=== PATIENT | female | born 1960 | race African-American/Black ===

== ENCOUNTER 2018-11-08 15:33 | Emergency (ER) | payer SELFPAY ==
[~2018-11-08] VITALS: Ht 162.6 cm; Wt 79.5 kg
[2018-11-08 15:36] VITALS: BP 181/87; TEMP 98.7
[2018-11-08] MEDS ORDERED: GLUCOPHAGE XR750 MG PO (15:45)
[2018-11-08] MEDS ORDERED: STEGLATRO5 MG PO (15:46)
[2018-11-08] MEDS ORDERED: ANTIVERT 25MG25 MG PO (15:46)
[2018-11-08] MEDS ORDERED: VITAMIN D32000 I1 PO (15:46)
[2018-11-08] MEDS ORDERED: ASPIRIN 81M81 MG/TA2 PO (15:46)
[2018-11-08] MEDS ORDERED: LIPITOR20 MG PO (15:47)
[2018-11-08] MEDS ORDERED: EPITOL PO (15:47)
[2018-11-08] MEDS ORDERED: ZESTRIL 20MG TA20 MG PO (15:48)
[2018-11-08] MEDS ORDERED: TYLENOL 8 HR PO (15:48)
[2018-11-08] MEDS ORDERED: TOUJEO300 U/ML SQ (15:49)
[2018-11-08] MEDS ORDERED: NEURONTIN300 MG/CAP PO ×2 (15:49→16:19)
[2018-11-08] MEDS ORDERED: NORCO 325 MG-51 TAB PO (16:18)
[2018-11-08] MEDS ORDERED: TEGRETOL 2200 MG/TA1 PO (16:19)
[2018-11-08 16:43] VITALS: PULSE 82
== END 2018-11-08 16:45 | disposition home or self-care (01) ==
LOC: COL.ER 15:33
DX: G50.0 Trigeminal neuralgia (principal); I10 Essential (primary) hypertension; E11.9 Type 2 diabetes mellitus without complications; E78.5 Hyperlipidemia, unspecified; Z79.82 Long term (current) use of aspirin; Z79.4 Long term (current) use of insulin

== ENCOUNTER 2018-11-19 14:37 | Emergency (ER) | payer SELFPAY ==
[~2018-11-19] VITALS: Ht 162.6 cm; Wt 81.8 kg
[~2018-11-19 14:37] MED LIST: ANTIVERT 25MG25 MG PO; ASPIRIN 81M81 MG/TA2 PO; EPITOL PO; GLUCOPHAGE XR750 MG PO; LIPITOR20 MG PO; NEURONTIN300 MG/CAP PO; NORCO 325 MG-51 TAB PO; STEGLATRO5 MG PO; TEGRETOL 2200 MG/TA1 PO; TOUJEO300 U/ML SQ; TYLENOL 8 HR PO; VITAMIN D32000 I1 PO; ZESTRIL 20MG TA20 MG PO
[2018-11-19 14:50] VITALS: BP 176/82; TEMP 98
[2018-11-19 17:31] VITALS: PULSE 81
== END 2018-11-19 17:32 | disposition home or self-care (01) ==
LOC: COL.ER 14:37
DX: G50.0 Trigeminal neuralgia (principal); E11.9 Type 2 diabetes mellitus without complications

== ENCOUNTER → 2018-12-18 | Outpatient (CLI) | payer SELFPAY | LOC: COL.RAD 11:42 | DX: M79.89 Other specified soft tissue disorders (principal); L84 Corns and callosities; E11.69 Type 2 diabetes mellitus with other specified complication; Z89.422 Acquired absence of other left toe(s) ==

== ENCOUNTER → 2018-12-31 | Outpatient (CLI) | payer SELFPAY | LOC: COL.RAD 11:30 | DX: G50.0 Trigeminal neuralgia (principal) ==

== ENCOUNTER 2019-01-05 16:02 | Emergency (ER) | payer OTHER ==
[2019-01-05 16:14] VITALS: BP 187/84; TEMP 97.6
[2019-01-05] MEDS ORDERED: NORCO 325 MG-51 TAB PO (19:10)
[2019-01-05] MEDS ORDERED: NAPROSYN 2250 MG/TAB PO (19:10)
[2019-01-05] MEDS ORDERED: TEGRETOL 1100 MG/TAB PO (19:10)
[2019-01-05 19:45] VITALS: PULSE 84
== END 2019-01-05 19:46 | disposition home or self-care (01) ==
LOC: COL.ER 16:02
DX: G50.0 Trigeminal neuralgia (principal)
CPT/HCPCS: J1170; J1885

== ENCOUNTER 2019-01-16 14:05 | Emergency (ER) | payer OTHER ==
[~2019-01-16] VITALS: Ht 162.6 cm; Wt 80.8 kg
[~2019-01-16 14:05] MED LIST changes: +NAPROSYN 2250 MG/TAB PO; +TEGRETOL 1100 MG/TAB PO
[2019-01-16 14:23] VITALS: BP 199/91; TEMP 78.8
[2019-01-16] MEDS ORDERED: NORCO 325 MG-51 TAB PO (16:24)
[2019-01-16] MEDS ORDERED: TEGRETOL 2200 MG/TA1 PO (16:24)
[2019-01-16 16:35] VITALS: PULSE 78
== END 2019-01-16 16:36 | disposition home or self-care (01) ==
LOC: COL.ER 14:05
DX: G50.0 Trigeminal neuralgia (principal); E11.9 Type 2 diabetes mellitus without complications; Z79.84 Long term (current) use of oral hypoglycemic drugs

== ENCOUNTER 2019-01-20 16:55 | Emergency (ER) | payer OTHER ==
[~2019-01-20] VITALS: Ht 162.6 cm; Wt 80.9 kg
[2019-01-20 17:05] VITALS: TEMP 98.6
[2019-01-20] MEDS ORDERED: NORCO 325 MG-51 TAB PO (19:08)
[2019-01-20 19:26] VITALS: BP 164/63; PULSE 79
== END 2019-01-20 19:28 | disposition home or self-care (01) ==
LOC: COL.ER 16:55
DX: G50.0 Trigeminal neuralgia (principal); E11.621 Type 2 diabetes mellitus with foot ulcer

== ENCOUNTER 2019-03-28 11:56 | Emergency (ER) | payer OTHER ==
[~2019-03-28] VITALS: Ht 162.6 cm; Wt 79.5 kg
[2019-03-28 12:01] VITALS: TEMP 98.3
[2019-03-28 12:47] LABS: BASO % 0.1 % (0.0-2.0); EOS # 0.3 (0.0-0.7); EOS % 2.9 % (0-4.0); GRAN # 6.8 (1.4-6.5); GRAN % 72.4 % (42.2-75.2); LYMPH # 1.8 (1.2-3.4); LYMPH % 19.6 % (20.0-51.0); MEAN CELL VOLUME 84 fl (80.0-100.0); MEAN CORPUSCULAR HEMOGLOBIN 27 pg (27.0-31.0); MEAN CORPUSCULAR HGB CONC 32 g/dl (33.0-37.0); MEAN PLATELET VOLUME 9.7 fl (7.4-10.4); MONO # 0.4 (0.1-0.6); MONO % 4.6 % (1.7-9.3); PLATELET COUNT 301 K/mm3 (130-400); RED BLOOD COUNT 3.74 M/mm3 (4.10-5.30); REDCELL DISTRIBUTION WIDTH-CV 14.7 % (11.5-14.5)
[2019-03-28 12:48] LABS: HEMATOCRIT 31.3 % (37.0-47.0)
[2019-03-28 13:03] LABS: ALBUMIN 4.2 gm/dL (3.5-5.0); BILIRUBIN,TOTAL 0.2 mg/dL (0.0-1.0); CALCIUM 9.8 mg/dL (8.4-10.2); CREATININE, serum 0.82 (0.52-1.25); POTASSIUM 4.5 mmol/L (3.4-5.0); TOTAL PROTEIN 7.9 gm/dL (6.4-8.2)
[2019-03-28 13:16] LABS: ERYTHROCYTE SEDIMENTATION RATE 105 mm/hr (0-30)
[2019-03-28 13:30] LABS: C-REACTIVE PROTEIN 16.9 mg/dL (0.0-0.9)
[2019-03-28] MEDS ORDERED: CLEOCIN HCL300 MG PO (14:23)
[2019-03-28 16:43] VITALS: BP 133/73; PULSE 84
== END 2019-03-28 16:45 | disposition home or self-care (01) ==
LOC: COL.ER 11:56
PROVIDERS: Emergency Medicine
DX: M86.9 Osteomyelitis, unspecified (principal); L08.9 Local infection of the skin and subcutaneous tissue, unspecified
CPT/HCPCS: J0696; J3370; J7040

== ENCOUNTER → 2019-03-29 | Outpatient (CLI) | payer OTHER ==
[~2019-03-29] MED LIST changes: +CLEOCIN HCL300 MG PO; +CYMBALTA 30MG30 MG PO; +JENTADUETO PO; +LOTREL 5/20 CAP1 CAP PO; +LYRICA 100MG C100 M1 PO; +MASON NATURAL2000 IU PO
== END ==
LOC: ZCOL.LAB 11:15
DX: Z01.812 Encounter for preprocedural laboratory examination (principal); Z86.14 Personal history of Methicillin resistant Staphylococcus aureus infection

== ENCOUNTER 2019-03-31 15:00 | Inpatient (IN) | payer OTHER ==
[~2019-03-31] VITALS: Ht 162.6 cm; Wt 93.3 kg
[~2019-03-31 15:00] MED LIST changes: -CYMBALTA 30MG30 MG PO; -JENTADUETO PO; -LOTREL 5/20 CAP1 CAP PO; -LYRICA 100MG C100 M1 PO; -MASON NATURAL2000 IU PO
[2019-03-31] MEDS ORDERED: LIPITOR20 MG PO (15:21)
[2019-03-31] MEDS ORDERED: CYMBALTA 30MG30 MG PO (15:22)
[2019-03-31] MEDS ORDERED: MASON NATURAL2000 IU PO (15:22)
[2019-03-31] MEDS ORDERED: JENTADUETO PO (15:23)
[2019-03-31] MEDS ORDERED: ASPIRIN 81M81 MG/TA2 PO (15:24)
[2019-03-31] MEDS ORDERED: EPITOL PO (15:24)
[2019-03-31 15:46] LABS: BASO % 0.2 % (0.0-2.0); EOS # 0.4 (0.0-0.7); EOS % 3.9 % (0-4.0); GRAN # 6.1 (1.4-6.5); GRAN % 65.3 % (42.2-75.2); HEMOGLOBIN 10.4 g/dl (12.5-16.0); LYMPH # 2.2 (1.2-3.4); LYMPH % 23.6 % (20.0-51.0); MEAN CELL VOLUME 84 fl (80.0-100.0); MEAN CORPUSCULAR HEMOGLOBIN 27 pg (27.0-31.0); MEAN CORPUSCULAR HGB CONC 32 g/dl (33.0-37.0); MEAN PLATELET VOLUME 9.5 fl (7.4-10.4); MONO # 0.6 (0.1-0.6); MONO % 6.7 % (1.7-9.3); PLATELET COUNT 349 K/mm3 (130-400); REDCELL DISTRIBUTION WIDTH-CV 14.6 % (11.5-14.5)
[2019-03-31 15:47] LABS: HEMATOCRIT 32.7 % (37.0-47.0)
[2019-03-31 15:58] LABS: ALBUMIN 4.2 gm/dL (3.5-5.0); BILIRUBIN,TOTAL 0.2 mg/dL (0.0-1.0); CALCIUM 10.2 mg/dL (8.4-10.2); CREATININE, serum 0.68 (0.52-1.25); POTASSIUM 4.6 mmol/L (3.4-5.0)
[2019-03-31 16:18] LABS: C-REACTIVE PROTEIN 19.1 mg/dL (0.0-0.9)
[2019-03-31] MEDS ORDERED: LYRICA 100MG C100 M1 PO (16:23)
[2019-03-31] MEDS ORDERED: LOTREL 5/20 CAP1 CAP PO (16:24)
--- NOTE | 2019-03-31 18:00 | NUR ---
PATIENT SETTELED INTO ROOM. DAUGHTER PRESENT AT THE BEDSIDE. IV FLUIDS AND ZOSYN INFUSING TO LEFT AC IV VIA PUMP. CALL LIGHT WITHIN REACH. DINNER TRAY ORDERED. PATIENT DENIES ANY NEEDS AT THIS TIME.
[2019-03-31 18:09] VITALS: BP 143/64; PULSE 87; TEMP 97.9
--- NOTE | 2019-03-31 19:02 | NUR ---
REPORT GIVEN TO SUSAN HINOJOSA.
--- NOTE | 2019-03-31 19:11 | NUR ---
Report received from SUSAN Mckeon. Patient finished up supper and tray removed. Daughter at bedside. IV to LAC continues to occlude. Coban applied and this appears to be helping. Will continue to monitor.
[2019-03-31 19:23] VITALS: BP 147/67; PULSE 92; TEMP 98.3
[2019-03-31 23:40] VITALS: BP 124/46; PULSE 77; TEMP 98.3
--- NOTE | 2019-04-01 04:08 | NUR ---
Wound culture obtained around 2300. Site to left 2nd toe rewrapped with gauze. Patient complains of pain but refuses pain medication. Bilateral edema noted with +2 on the left foot. Patient states she has not been able to rest well tonight. Will continue to monitor.
[2019-04-01 04:43] VITALS: BP 123/49; PULSE 80; TEMP 98.1
[2019-04-01 08:02] VITALS: BP 128/48; PULSE 78; TEMP 98.1
--- NOTE | 2019-04-01 10:21 | NUR ---
SW attended rounds with the team. Ortho was consulted. After rounds SW met with the patient and patient's daughter, Maribel to discuss a discharge plan. The patient lives in [place] with her daughter. The patient has a cane and reports independence with ADLs. The patient inquired about getting a walker. The patient is self-pay. AUGUSTIN contacted Neil from [facility] to inquire about a walker. Lilia reports [facility] has a walker available. SW to informed patient. The patient's PCP is Kendy Lewis APRN and patient receives medications from [facility] and at times has difficulties paying. Patient will need medication voucher upon discharge if any medications are prescribed. The patient does not have advanced directives in the EMR but was interested in obtaining a DPOA-HC. AUGUSTIN provided the form. The patient plans to return home upon discharge with Maribel providing transportation. medical and health services manager will continue to follow to ensure a safe discharge.
--- NOTE | 2019-04-01 11:00 | NUR ---
Patient is doing well this am. Minimal complaints of pain to left foot. Is having some pain from trigeminal neuralgia. Gauze dressing to left foot. Wound care notified this am of consult. Patient has been up to the bathroom but otherwise is staying in bed with foot elevated. No other changes at this time. Call light within reach.
[2019-04-01 11:06] VITALS: BP 137/46; PULSE 78; TEMP 97.6
[2019-04-01 15:20] VITALS: BP 111/48; BP 124/109; PULSE 79; TEMP 98
--- NOTE | 2019-04-01 18:30 | NUR ---
Patient is in the shower at this time. She wanted to shower before her next dose of antibiotics. Continues to deny pain. Family has been at bedside all day. No other changes at this time. Call light within reach.
--- NOTE | 2019-04-01 19:24 | NUR ---
Report received from SUSAN Camargo. Dressing to left toe changed. Yellow, pus-like drainage noted on old bandage. Patient denies any further needs at this time.
[2019-04-01 19:29] VITALS: BP 119/61; PULSE 83; TEMP 98.2
[2019-04-01 23:51] VITALS: BP 124/57; PULSE 84; TEMP 97.7
[2019-04-02] VITALS (13 sets, daily range): BP systolic 109–141; BP diastolic 39–72; PULSE 65–80; TEMP 97.7–98.7
--- NOTE | 2019-04-02 06:06 | NUR ---
Patient has rested well throughout the night. Denies pain. NPO at midnight. Patient denies any needs. Up to the bathroom independently, but calls for staff to empty hat in toilet. Will report off to day shift nurse.
--- NOTE | 2019-04-02 06:53 | NUR ---
awake and up in room independently, bedside shift report received from SUSAN Dolan
--- NOTE | 2019-04-02 07:15 | NUR ---
watching TV, full assessment completed, see interventions for further info, ready for surgery, blood sugar 202, spoke with Ritchie Vicente CRNA and will hold insulin,
--- NOTE | 2019-04-02 08:00 | NUR ---
to surgery per bed, attempted to call JOSE MARTIN Jansen and no answer
--- NOTE | 2019-04-02 09:50 | NUR ---
returned to room from surgery per bed, awake and alert but sleepy, IV infusing per gravity, has bulky sana wrap dressing to left foot that is CD&I, denies needs at this time
--- NOTE | 2019-04-02 10:15 | NUR ---
repositioned for comfort, states has having some "chest pressure' and wants to try being repositioned, denies shortness of breath
--- NOTE | 2019-04-02 10:45 | NUR ---
is a little more awake and am meds given, assisted up to bathroom and voided qs
--- NOTE | 2019-04-02 11:00 | NUR ---
states the "chest pressure" is more like a knot in her chest, rests quietly
--- NOTE | 2019-04-02 11:10 | NUR ---
Svetlana PEREZ notified of patient's c/o 'chest pressure/knot in her chest"
--- NOTE | 2019-04-02 12:30 | NUR ---
awake and watching TV, has ordered something to eat
--- NOTE | 2019-04-02 15:41 | NUR ---
ambulated in [place] with physical therapy, Vancomycin started and IV is leaking, discontinued
--- NOTE | 2019-04-02 16:00 | NUR ---
attempted times to to start IV without success, vehicle maintenance supervisor notified
--- NOTE | 2019-04-02 17:30 | NUR ---
sitting up in bed eating supper
--- NOTE | 2019-04-02 19:00 | NUR ---
bedside shift report given to SUSAN Galeana
--- NOTE | 2019-04-02 20:10 | NUR ---
Pt resting in bed. No distress noted. Pt denies pain. Dressing to L foot-second toe amputation clean dry and intact. Pedal pulses equal. CMS intact. Respirations even and unlabored. Lungs clear. Abdomen soft, nontender. BS+. IV Abx infusing to RH INT. Pt denies needs at this time. Will continue to monitor.
[2019-04-03] VITALS (7 sets, daily range): BP systolic 96–139; BP diastolic 45–77; PULSE 71–79; TEMP 97.3–98.9
--- NOTE | 2019-04-03 06:17 | NUR ---
Pt resting this AM. No distress noted. Pt has had no complaints of pain throughout the night. Ambulating to the bathroom and back to bed without difficulty. IV Abx infusing to RH INT. VSS.
[2019-04-03 07:16] LABS: BASO % 0.3 % (0.0-2.0); EOS # 0.3 (0.0-0.7); EOS % 4.1 % (0-4.0); GRAN # 4.2 (1.4-6.5); GRAN % 58.1 % (42.2-75.2); LYMPH # 2.2 (1.2-3.4); LYMPH % 29.9 % (20.0-51.0); MEAN CELL VOLUME 84 fl (80.0-100.0); MEAN CORPUSCULAR HGB CONC 31 g/dl (33.0-37.0); MEAN PLATELET VOLUME 9.6 fl (7.4-10.4); MONO # 0.5 (0.1-0.6); MONO % 6.9 % (1.7-9.3); PLATELET COUNT 332 K/mm3 (130-400); REDCELL DISTRIBUTION WIDTH-CV 14.9 % (11.5-14.5)
[2019-04-03 07:19] LABS: HEMATOCRIT 27.7 % (37.0-47.0); HEMOGLOBIN 8.6 g/dl (12.5-16.0); MEAN CORPUSCULAR HEMOGLOBIN 26 pg (27.0-31.0)
[2019-04-03 07:24] LABS: CALCIUM 8.7 mg/dL (8.4-10.2); CREATININE, serum 0.64 (0.52-1.25)
--- NOTE | 2019-04-03 14:30 | NUR ---
track service worker met with Dr Lowe and then with patient and daughter regarding discharge planning. Worker arranged for Kimani to meet with patient and complete a medicaid application. Worker provided option of outpatient express at [place] via [place] if the decision is to take continued IV antibiotics post hospital stay. Patient stated that IV is her preference and daughter stated that they live close to the hospital and she could transport her.
--- NOTE | 2019-04-03 23:17 | NUR ---
PATIENT ASSESSMENT COMPLETED. PATIENT HERE WITH DX OF OSTEOMYELITIS TO LEFT 2ND TOE COVERED WITH SURGICAL DRESSING/BOOT. PATIENT ALERT AND ORIENTED AND VSS. PATIENT IS RECEIVING VANCOMYCIN Q 12. PATIENT HEART AND LUNG SOUNDS NORMAL. PATIENT DENIES PAIN. PATIENT HAS RIGHT HAND IV INT AND SINGLE LUMEN PICC IN RIGHT UPPER ARM. SITE IS CLEAN, DRY, AND INTACT. PATIENT DENIES PAIN AT THIS TIME. PATIENT RESTING IN BED. CALL LIGHT WITHIN REACH, WILL CONTINUE TO MONITOR
[2019-04-04 03:26] VITALS: BP 100/59; PULSE 74; TEMP 98.2
--- NOTE | 2019-04-04 03:49 | NUR ---
IV vancomycin hung, patient resting in bed. no complaints of pain at this time.
[2019-04-04 08:04] VITALS: BP 118/64; PULSE 66; TEMP 98.2
--- NOTE | 2019-04-04 09:09 | NUR ---
SW attended clinical rounds with the team. The patient will discharge home today, 04/04. The patient will not need IV antibiotics and will go home with a antibiotic prescription. There are no additional needs at this time.
[2019-04-04] MEDS ORDERED: LEVAQUIN 750MG750 M1 PO (09:13)
[2019-04-04] MEDS ORDERED: PERCOCET 325 MG1 TA2 PO (09:39)
[2019-04-04] MEDS ORDERED: MOBIC15 MG PO (09:40)
[2019-04-04] MEDS ORDERED: ZOFRAN 4MG T4 MG/TAB PO (09:41)
[2019-04-04] MEDS ORDERED: COLACE 100100 MG/CAP PO (09:41)
--- NOTE | 2019-04-04 09:44 | NUR ---
AM ASSESSMENT COMPLETED. PATIENT SITTING UP IN BED. FINISHING BREAKFAST AND PLAYING ON PHONE. ATTITUDE CALM AND PLEASANT. DENIES NEEDS. C/O MILD THROBBING IN LEFT FOOT. TYLENOL ADMINISTERED BY STONE UNLOADER. NO OTHER COMPLAINTS. DR JASON ROUNDED PATIENT TO DC TO HOME WITH ORAL ANTIBIOTICS. TO HAVE PICC LINE REMOVED.
--- NOTE | 2019-04-04 11:24 | NUR ---
PATIENT DC TO HOME AT 1105 ACCOMPANIED BY DAUGHTER BALLET MASTER/MISTRESS. PRINTED DC INSTRUCTIONS TO INCLUDE F/U APPOINTMENTS, MEDICATION,ACTIVITY, AND DIET REVIEWED WITH PATIENT. PICC LINE REMOVAL INSTRUCTIONS REVIEWED WITH PATIENT. NO QUESTIONS OR CONCERNS AFTER REVIEW. DC OFF FLOOR VIA WC ACCOMPANIED BY THIS NURSE AND FUR VAULT ATTENDANT.
== END 2019-04-04 11:05 | disposition home or self-care (01) | DRG 617 ==
LOC: COL.ER 15:00 → SURG 16:24
PROVIDERS: Emergency Medicine; Orthopaedic Surgery Sports Medicine; Physician Assistant; ADMIT Internal Medicine
PROC: 0Y6S0Z0 Detachment at Left 2nd Toe, Complete, Open Approach (ICD-10-PCS; principal; 2019-04-02 08:30)
DX: E11.69 Type 2 diabetes mellitus with other specified complication (principal); M86.672 Other chronic osteomyelitis, left ankle and foot; L97.526 Non-pressure chronic ulcer of other part of left foot with bone involvement without evidence of necrosis; E87.2 Acidosis; Z79.84 Long term (current) use of oral hypoglycemic drugs; I10 Essential (primary) hypertension; E78.5 Hyperlipidemia, unspecified; Z89.412 Acquired absence of left great toe; E11.621 Type 2 diabetes mellitus with foot ulcer
CPT/HCPCS: 99223-AI; 99232-AI; 99239; A9284; C1751; J0696; J1815; J2543; J2704; J3010; J3370; J7030; J7050

== ENCOUNTER 2019-09-14 09:41 | Emergency (ER) | payer SELFPAY ==
[~2019-09-14] VITALS: Ht 162.6 cm; Wt 79.5 kg
[~2019-09-14 09:41] MED LIST changes: +COLACE 100100 MG/CAP PO; +CYMBALTA 30MG30 MG PO; +JENTADUETO PO; +LEVAQUIN 750MG750 M1 PO; +LOTREL 5/20 CAP1 CAP PO; +LYRICA 100MG C100 M1 PO; +MASON NATURAL2000 IU PO; +MOBIC15 MG PO; +PERCOCET 325 MG1 TA2 PO; +ZOFRAN 4MG T4 MG/TAB PO
[2019-09-14 09:46] VITALS: TEMP 97.6
[2019-09-14] MEDS ORDERED: NEURONTIN300 MG/CAP PO ×2 (10:01)
[2019-09-14 10:35] VITALS: BP 161/83; PULSE 77
== END 2019-09-14 10:36 | disposition home or self-care (01) ==
LOC: COL.ER 09:41
DX: R51 Headache (principal); E11.9 Type 2 diabetes mellitus without complications; I10 Essential (primary) hypertension; E78.5 Hyperlipidemia, unspecified; Z79.82 Long term (current) use of aspirin; Z79.84 Long term (current) use of oral hypoglycemic drugs

== ENCOUNTER 2020-01-05 16:10 | Emergency (ER) | payer MEDICAID ==
[~2020-01-05] VITALS: Ht 162.6 cm; Wt 80.9 kg
[2020-01-05 16:15] VITALS: BP 153/88; TEMP 98.4
[2020-01-05] MEDS ORDERED: NEURONTIN300 MG/CAP PO (16:51)
[2020-01-05] MEDS ORDERED: PERCOCET 325 MG1 TA2 PO (16:51)
[2020-01-05 17:13] VITALS: PULSE 79
== END 2020-01-05 17:13 | disposition home or self-care (01) ==
LOC: COL.ER 16:10
DX: S39.012A Strain of muscle, fascia and tendon of lower back, initial encounter (principal); R51 Headache; I10 Essential (primary) hypertension; F32.9 Major depressive disorder, single episode, unspecified; Z79.82 Long term (current) use of aspirin; X58.XXXA Exposure to other specified factors, initial encounter
CPT/HCPCS: J1885

== ENCOUNTER → 2020-02-20 | Outpatient (CLI) | payer MEDICARE, MEDICAID ==
[~2020-02-20] MED LIST changes: +ASPI325T6 PO; +LIPITOR 40MG TA40 MG PO; +LYRICA200 MG PO
== END ==
LOC: COL.RAD 12:30
DX: G50.0 Trigeminal neuralgia (principal); R90.82 White matter disease, unspecified
CPT/HCPCS: A9585

== ENCOUNTER 2020-02-26 09:35 | Outpatient (CLI) | payer MEDICARE, MEDICAID ==
[~2020-02-26] VITALS: Ht 162.6 cm; Wt 83.6 kg
[2020-02-26 09:50] VITALS: BP 151/93; PULSE 84
[2020-02-26 10:43] VITALS: BP 133/65; PULSE 82
--- NOTE | 2020-02-26 10:48 | NUR ---
Pt arrived to room 19.Observed alert and orientated x 3,rspirations even and unlabored.Report from Rhoda Melgar.
[2020-02-26 11:34] LABS: CSF APPEARANCE CLEAR; CSF COLOR COLORLESS
[2020-02-26 11:38] LABS: GLUCOSE,CSF 90 mg/dL (40-70); TOTAL PROTEIN,CSF 44 mg/dL (15-45)
[2020-02-26 12:04] VITALS: BP 123/54; PULSE 78
[2020-02-26 12:09] LABS: CSF RBC 44 /mm3 (0-0)
[2020-02-26 12:20] VITALS: BP 137/67; PULSE 85
[2020-02-26 12:35] VITALS: BP 126/58; PULSE 81
--- NOTE | 2020-02-26 12:44 | NUR ---
Discharge instructions given to pt.pt verbalizes understanding.Pt escorted out via wheelchair by this nurse.
[2020-02-26 12:50] VITALS: BP 133/65; PULSE 57
[2020-02-26 13:04] LABS: CSF MONONUCLEAR 84 % (70-100); CSF POLYMORPHONUCLEAR 16 % (0-6)
== END 2020-02-26 15:18 | disposition home or self-care (01) ==
LOC: COL.RAD 09:35
PROVIDERS: Psychiatry & Neurology Neurology
DX: G37.9 Demyelinating disease of central nervous system, unspecified (principal)

== ENCOUNTER → 2020-03-05 | Outpatient (CLI) | payer MEDICARE, MEDICAID | LOC: MC.RAD 15:45 | DX: Z12.31 Encounter for screening mammogram for malignant neoplasm of breast (principal) ==

== ENCOUNTER 2020-03-27 07:01 | Day surgery (SDC) | payer MEDICARE, MEDICAID ==
[~2020-03-27] VITALS: Ht 162.6 cm; Wt 83.9 kg
[2020-03-27] VITALS (8 sets, daily range): BP systolic 133–178; BP diastolic 47–83; PULSE 71–83; TEMP 97–97.1
--- NOTE | 2020-03-27 08:50 | NUR ---
PATIENT TO [facility] 2 POST PROCEDURE VIA CART BY SUSAN JOSUE. AMBULATES TO CHAIR WITH ASSIST. MADE COMFORTABLE IN CHAIR AND GIVEN WARM BLANKETS. VITAL SIGNS TAKEN AND WNL. OFFERED REFRESHMENT, ACCEPTS JUICE AND MUFFIN. CALL LIGHT WITHIN REACH. DENIES NAUSEA OR PAIN AT THIS TIME. RESTING COMFORTABLY IN CHAIR.
--- NOTE | 2020-03-27 09:00 | NUR ---
PATIENT CONTINUES TO REST IN CHAIR. NO COMPLAINTS. GIVEN JUICE AND MUFFIN.
--- NOTE | 2020-03-27 09:15 | NUR ---
PATIENT RESTING WITH EYES CLOSED IN CHAIR. EASILY AROUSED WITH VERBAL STIMULI. NO NAUSEA OR ABDOMINAL PAIN AFTER ORAL FLUID OR FOOD. NO COMPLAINT AT THIS TIME.
--- NOTE | 2020-03-27 09:25 | NUR ---
UP TO BATHROOM WITH STANDBY ASSIST. PATIENT STABLE WHEN WALKING NO DIZZINESS OR LIGHT HEADEDNESS.
--- NOTE | 2020-03-27 09:30 | NUR ---
PATIENT CONTINUES TO REST COMFORTABLY IN CHAIR. NO COMPLAINTS.
--- NOTE | 2020-03-27 10:00 | NUR ---
PATIENT ALERT AND AWAKE AND READY TO GO HOME. DENIES NAUSEA OR PAIN. IV SITE WITHOUT REDNESS OR SWELLING. IV DISCONTINUES @ 1002. DISMISSAL INSTRUCTIONS EXPLAINED AND REVIEWED. HARD COPIES GIVEN. PATIENT DENIES QUESTIONS AND SIGNS IN ACKNOWLEDGMENT OF RECEIPT @1001
== END 2020-03-27 10:18 | disposition home or self-care (01) ==
LOC: SDCO 07:01
DX: K21.0 Gastro-esophageal reflux disease with esophagitis (principal); E11.9 Type 2 diabetes mellitus without complications; K64.0 First degree hemorrhoids; E78.00 Pure hypercholesterolemia, unspecified; I10 Essential (primary) hypertension; K92.1 Melena; Z80.0 Family history of malignant neoplasm of digestive organs; Z79.82 Long term (current) use of aspirin; E78.5 Hyperlipidemia, unspecified; M19.90 Unspecified osteoarthritis, unspecified site; Z20.828 Contact with and (suspected) exposure to other viral communicable diseases; G50.0 Trigeminal neuralgia; D50.0 Iron deficiency anemia secondary to blood loss (chronic)
CPT/HCPCS: J2704

== ENCOUNTER 2020-04-05 11:28 | Emergency (ER) | payer MEDICARE, MEDICAID ==
[~2020-04-05] VITALS: Ht 162.6 cm; Wt 81.8 kg
[2020-04-05 11:41] VITALS: BP 168/82; TEMP 97.9
[2020-04-05] MEDS ORDERED: NORCO 325 MG-51 TAB PO (12:40)
[2020-04-05 13:35] VITALS: PULSE 73
== END 2020-04-05 12:30 | disposition home or self-care (01) ==
LOC: COL.ER 11:28
DX: H10.9 Unspecified conjunctivitis (principal); G50.0 Trigeminal neuralgia; S09.90XA Unspecified injury of head, initial encounter; E11.9 Type 2 diabetes mellitus without complications; I10 Essential (primary) hypertension; Z79.82 Long term (current) use of aspirin; Z79.84 Long term (current) use of oral hypoglycemic drugs; W06.XXXA Fall from bed, initial encounter; Y92.009 Unspecified place in unspecified non-institutional (private) residence as the place of occurrence of the external cause

== ENCOUNTER → 2020-07-13 | Outpatient (RCR) | payer MEDICARE, MEDICAID | END | disposition home or self-care (01) | LOC: MKS.ESL.PT | DX: R53.81 Other malaise (principal) ==

== ENCOUNTER 2020-08-18 10:15 | Outpatient (RCR) | payer MEDICARE, MEDICAID | END 2020-10-15 | disposition home or self-care (01) | LOC: MKS.ESL.PT | DX: R53.81 Other malaise (principal); Z98.890 Other specified postprocedural states ==

== ENCOUNTER → 2020-10-15 | Outpatient (CLI) | payer MEDICARE, MEDICAID ==
[2020-10-15 11:30] LABS: EOS # 0.3 (0.0-0.7); EOS % 4.6 % (0-4.0); GRAN # 3.2 (1.4-6.5); GRAN % 50.2 % (42.2-75.2); HEMATOCRIT 40.5 % (37.0-47.0); HEMOGLOBIN 12.7 g/dl (12.5-16.0); LYMPH # 2.5 (1.2-3.4); LYMPH % 39.4 % (20.0-51.0); MEAN CELL VOLUME 83 fl (80.0-100.0); MEAN CORPUSCULAR HEMOGLOBIN 26 pg (27.0-31.0); MEAN CORPUSCULAR HGB CONC 31 g/dl (33.0-37.0); MONO # 0.4 (0.1-0.6); MONO % 5.6 % (1.7-9.3); PLATELET COUNT 227 K/mm3 (130-400); RED BLOOD COUNT 4.89 M/mm3 (4.10-5.30); REDCELL DISTRIBUTION WIDTH-CV 15.5 % (11.5-14.5)
[2020-10-15 11:40] LABS: ALBUMIN 4.9 gm/dL (3.5-5.0); BILIRUBIN,TOTAL 0.2 mg/dL (0.0-1.0); CALCIUM 10.1 mg/dL (8.4-10.2); CHOLESTEROL RISK RATIO 4.3; CREATININE, serum 0.75 (0.52-1.25); POTASSIUM 4.4 mmol/L (3.4-5.0); TOTAL PROTEIN 9.7 gm/dL (6.4-8.2)
== END ==
LOC: COL.LAB 10:49
PROVIDERS: Registered Nurse
DX: I10 Essential (primary) hypertension (principal); Z79.899 Other long term (current) drug therapy

== ENCOUNTER 2020-10-16 09:45 | Outpatient (RCR) | payer MEDICARE, MEDICAID | END 2020-10-20 10:02 | disposition home or self-care (01) | LOC: MKS.ESL.PT 09:45 | DX: M19.012 Primary osteoarthritis, left shoulder (principal) ==

== ENCOUNTER 2020-11-18 11:33 | Emergency (ER) | payer MEDICARE, MEDICAID ==
[~2020-11-18] VITALS: Ht 162.6 cm; Wt 79.5 kg
[2020-11-18 11:41] VITALS: TEMP 97.8
[2020-11-18 13:07] LABS: EOS % 0.8 % (0-4.0); GRAN # 2.2 (1.4-6.5); GRAN % 42.4 % (42.2-75.2); HEMATOCRIT 39.9 % (37.0-47.0); HEMOGLOBIN 12.7 g/dl (12.5-16.0); LYMPH # 2.5 (1.2-3.4); LYMPH % 48.9 % (20.0-51.0); MEAN CELL VOLUME 80 fl (80.0-100.0); MEAN CORPUSCULAR HEMOGLOBIN 26 pg (27.0-31.0); MEAN CORPUSCULAR HGB CONC 32 g/dl (33.0-37.0); MEAN PLATELET VOLUME 10.4 fl (7.4-10.4); MONO # 0.4 (0.1-0.6); MONO % 7.7 % (1.7-9.3); PLATELET COUNT 196 K/mm3 (130-400); RED BLOOD COUNT 4.98 M/mm3 (4.10-5.30); REDCELL DISTRIBUTION WIDTH-CV 16.5 % (11.5-14.5)
[2020-11-18 13:15] LABS: COLLECTION METHOD CLEAN CATCH
[2020-11-18 13:18] LABS: ALANINE AMINOTRANSFERASE 33 U/L (4-34); ALBUMIN 4.5 gm/dL (3.5-5.0); ALKALINE PHOSPHATASE 56 U/L (50-136); ANION GAP 11 mmol/L (7-16); AST,SGOT 23 U/L (15-37); BILIRUBIN,TOTAL 0.3 mg/dL (0.0-1.0); BLOOD UREA NITROGEN 29 mg/dL (7-17); CALCIUM 9.9 mg/dL (8.4-10.2); CARBON DIOXIDE 25 mmol/L (22-30); CHLORIDE 103 mmol/L (98-107); CREATININE, serum 0.95 (0.52-1.25); GLUCOSE 161 mg/dL (74-106); POTASSIUM 4.7 mmol/L (3.4-5.0); SODIUM 139 mmol/L (137-145)
[2020-11-18 13:25] LABS: C-REACTIVE PROTEIN < 0.5 mg/dL (0.0-0.9)
[2020-11-18 13:26] LABS: TROPONIN-I < 0.012 ng/mL (0.000-0.035)
[2020-11-18 13:40] LABS: PH 5 (5-8); SQUAMOUS EPITHELIAL 0-2 /hpf; URINE APPEARANCE Hazy; URINE BACTERIA None Seen /hpf; URINE BILIRUBIN Negative (NEGATIVE); URINE BLOOD Negative (NEGATIVE); URINE COLOR Yellow; URINE GLUCOSE 3+ (NEGATIVE); URINE KETONE Negative (NEGATIVE); URINE LEUKOCYTE ESTERASE Negative (NEGATIVE); URINE NITRATE Negative (NEGATIVE); URINE PROTEIN(semi-quant) Negative (NEGATIVE); URINE UROBILINOGEN Negative (NEGATIVE)
[2020-11-18 16:09] VITALS: BP 122/68; PULSE 84
== END 2020-11-18 16:13 | disposition home or self-care (01) ==
LOC: COL.ER 11:33
PROVIDERS: Emergency Medicine; Nurse Practitioner
DX: R68.83 Chills (without fever) (principal); R53.83 Other fatigue; R42 Dizziness and giddiness; Z20.822 Contact with and (suspected) exposure to COVID-19
CPT/HCPCS: J7030

== ENCOUNTER → 2020-12-23 | Outpatient (CLI) | payer MEDICARE, MEDICAID | LOC: COL.RAD 09:26 | DX: R05 Cough (principal) ==

== ENCOUNTER → 2021-06-30 | Outpatient (CLI) | payer MEDICARE, MEDICAID | LOC: MC.RAD 10:58 | DX: Z12.31 Encounter for screening mammogram for malignant neoplasm of breast (principal) ==

== ENCOUNTER → 2021-07-13 | Outpatient (CLI) | payer MEDICARE, MEDICAID | LOC: COL.RAD 10:26 | DX: M16.11 Unilateral primary osteoarthritis, right hip (principal) ==

== ENCOUNTER 2021-09-09 16:49 | Emergency (ER) | payer MEDICARE, MEDICAID ==
[~2021-09-09] VITALS: Ht 162.6 cm; Wt 74.1 kg
[2021-09-09 17:39] VITALS: TEMP 97.4
[2021-09-09 18:25] VITALS: BP 115/66; PULSE 81
[2021-09-10] MEDS ORDERED: PERCOCET 325 MG1 TA2 PO (00:38)
== END 2021-09-09 18:33 | disposition home or self-care (01) ==
LOC: COL.ER 16:49
DX: G50.0 Trigeminal neuralgia (principal)
CPT/HCPCS: J1170

== ENCOUNTER 2021-09-10 00:01 | Emergency (ER) | payer MEDICARE, MEDICAID ==
[~2021-09-10] VITALS: Ht 162.6 cm; Wt 74.1 kg
[2021-09-10 00:12] VITALS: TEMP 98.4
[2021-09-10] MEDS ORDERED: PERCOCET 325 MG1 TA2 PO (00:38)
[2021-09-10 01:07] VITALS: BP 149/73; PULSE 85
== END 2021-09-10 01:07 | disposition home or self-care (01) ==
LOC: COL.ER 00:01
DX: G50.0 Trigeminal neuralgia (principal); Z79.899 Other long term (current) drug therapy
CPT/HCPCS: J2270

== ENCOUNTER 2021-09-22 08:30 | Outpatient (RCR) | payer MEDICARE, MEDICAID | END 2021-09-22 09:11 | disposition home or self-care (01) | LOC: MKS.ESL.PT 08:30 | DX: M25.551 Pain in right hip (principal) ==

== ENCOUNTER 2021-09-27 09:50 | Emergency (ER) | payer MEDICARE, MEDICAID ==
[~2021-09-27] VITALS: Ht 162.6 cm; Wt 74.1 kg
[2021-09-27 09:55] VITALS: TEMP 98.1
[2021-09-27] MEDS ORDERED: PERCOCET 325 MG1 TA2 PO ×4 (11:00→11:17)
[2021-09-27 11:25] VITALS: BP 108/68; PULSE 71
== END 2021-09-27 11:26 | disposition home or self-care (01) ==
LOC: COL.ER 09:50
DX: G50.0 Trigeminal neuralgia (principal)
CPT/HCPCS: J1170

== ENCOUNTER 2021-09-29 12:55 | Emergency (ER) | payer MEDICARE, MEDICAID ==
[~2021-09-29] VITALS: Ht 162.6 cm; Wt 74.1 kg
[2021-09-29 13:03] VITALS: TEMP 97.2
[2021-09-29 14:04] VITALS: BP 149/77; PULSE 81
== END 2021-09-29 14:06 | disposition home or self-care (01) ==
LOC: COL.ER 12:55
DX: R05.9 Cough, unspecified (principal)
CPT/HCPCS: J1170; J2405